=== PATIENT | female | born 1955 | race African-American/Black ===

== ENCOUNTER 2017-03-24 10:51 | Day surgery (SDC) | payer OTHER ==
--- NOTE | 2017-03-21 11:37 | HP ---
Admitting History and Physical - Primary Care Physician PCP: Zackary Dean - Admission Chief Complaint: left breast cancer History of Present Illness: 61 yo female noted to have suspicious calcifications on mammo 10/2016, underwent a left 10 o'clock stereo core bx on 12/09/2016 which was c/w DCIS. An MRI done was c/w known cancer without evidence of multifocal or contralateral dz. Patient is now presenting for left breast wide excision with NL. History Source: Patient Limitations to Obtaining History: No Limitations Home Medications - Allergies Allergies/Adverse Reactions: Allergies Allergy/AdvReac Type Severity Reaction Status Date / Time No Known Allergies Allergy Verified 03/21/17 11:37 Family Disease History - Family Disease History Family History: Unremarkable Review of Systems - Review of Systems Constitutional: reports: No Symptoms Cardiovascular: reports: No Symptoms Respiratory: reports: No Symptoms Physical Examination Constitutional: Yes: Well Nourished Cardiovascular: Yes: WNL Respiratory: Yes: WNL Breast(s): Yes: Other (Pendulous double d-cup breasts without skin changes or nipple discharge noted. No suspicious masses or adenopathy noted bilaterally.) Problem List - Problems (1) Ductal carcinoma in situ (DCIS) of left breast Code(s): D05.12 - INTRADUCTAL CARCINOMA IN SITU OF LEFT BREAST Assessment/Plan Plan: Left breast WE with NL
[2017-03-21 16:28] VITALS: BMI 27.3
[2017-03-24] MEDS ORDERED: MIDAZOLAM HCL 2 MG/2 ML SINGLE DOSE VIAL ONE (15:53)
[2017-03-24] MEDS ORDERED: PROPOFOL 20 ML ONE ×3 (15:53)
[2017-03-24] MEDS ORDERED: ONDANSETRON 4 MG/2 ML VIAL IVPB PRN (15:53)
[2017-03-24] MEDS ORDERED: KETOROLAC TROMETHAMINE 30 MG/1 ML VIAL IVPUSH PRN (15:53)
[2017-03-24] MEDS ORDERED: DEXTROSE 5%-0.45% SALINE 1,000 ML IV SCH (16:00)
[2017-03-24] MEDS ORDERED: DEXAMETHASONE SOD PHOSPHATE 4 MG/1 ML VIAL ONE (16:06)
[2017-03-24] MEDS ORDERED: ceFAZolin SODIUM 1 GM VIAL ONE (16:06)
[2017-03-24] MEDS ORDERED: BUPIVACAINE HCL/PF 2.5 MG/ML - 30 ML VIAL IJ ONE (16:45)
[2017-03-24] MEDS ORDERED: PROMETHAZINE HCL 25 MG/1 ML VIAL IVPUSH PRN (16:58)
[2017-03-24] MEDS ORDERED: ONDANSETRON 4 MG/2 ML VIAL IVPUSH PRN (16:58)
[2017-03-24] MEDS ORDERED: oxyCODONE HCL 5 MG TABLET PO PRN (16:58)
[2017-03-24] MEDS ORDERED: ACETAMINOPHEN 325 MG TABLET (FP) PO PRN (16:58)
[2017-03-24 18:00] VITALS: BP 128/71; PULSE 75; TEMP 98.4
--- NOTE | 2017-03-25 07:48 | OP ---
DATE OF OPERATION: 03/24/2017 PREOPERATIVE DIAGNOSIS: Left breast ductal carcinoma in situ, upper inner quadrant. POSTOPERATIVE DIAGNOSIS: Left breast ductal carcinoma in situ, upper inner quadrant. PROCEDURE: Left breast partial mastectomy with mammographic needle localization. ANESTHESIA: Local with IV sedation. SURGEON: David Dean MD MANAGER INPATIENT: DEREK Sharif COMPLICATIONS: None. Briefly, the patient is a 61-year-old postmenopausal female with [place] descent. She was found to have some calcifications in the upper inner aspect of the left breast on mammography in September 2016 and underwent a stereotactic biopsy in December 2016 showing intermediate grade DCIS which was ER/NE positive. MRI performed January 2017 showed no suspicious extensive or contralateral findings. She was advised to undergo a left breast partial mastectomy, decided to delay until March. Patient was brought in for the procedure on March 24, 2017. She first underwent the mammographic needle localization of the clip in question in the upper inner aspect of the left breast. She was brought to the holding area and in the holding area a site verification was made and informed consent was obtained. She was brought into the operating room and laid on the OR table in the supine position. Venodynes were placed on the lower extremities. She received 1 g of Ancef prior to incision. She underwent IV sedation. The left breast was sterilely prepped and draped in the usual fashion with the wire prepped into the field. Lidocaine 1% was given directly around the needle localization site in the upper inner aspect of the left breast. A curvilinear incision was made and dissection was undertaken around the needle localization with the breast tissue completely removed from around the wire. The specimen was removed all the way down to the pectoralis major muscle. The specimen was oriented with a long lateral, short superior suture. Specimen radiograph showed removal of the clip in question. Hemostasis was achieved. At this point, a 3 x 4 tissue transfer closure was accomplished by undermining the breast tissue and swinging the breast tissue into the wound to close the defect. The breast tissue was reapproximated using 2-0 plain suture. The skin was closed using interrupted 3-0 deep dermal Vicryl suture and a running 4-0 subcuticular Biosyn suture. Mastisol, Steri-Strips were applied over the wound with a compressive dressing placed over this. She was placed in a surgical bra postoperatively and will be discharged home the same day once discharge criteria are met. She is to follow up in the office in 1 week for formal wound pathology check. Estimated blood loss was about 10 mL and all sponge and needle counts were correct at the end of the case. DAVID DEAN M.D. [id number]
--- NOTE | 2017-03-29 16:27 | PATH ---
Surgical Pathology Report Patient Name: NICO TONY [facility]. Rec. #: [id number] /Age/Gender: 1955 (Age: 61) / F Account: [id number] [facility] Taken: 03/24/2017 Received: 03/24/2017 Reported: 03/29/2017 Physicians: Zackary Dean M.D. Specimen(s) Received A: LEFT BREAST WIDE EXCISION B: LEFT BREAST SUPERIOR MARGIN C: LEFT BREAST LATERAL MARGIN D: LEFT BREAST INFERIOR MARGIN E: LEFT BREAST MEDIAL MARGIN F: LEFT BREAST DEEP MARGIN G: LEFT BREAST ANTERIOR MARGIN Clinical History Wide excision: DCIS Final Diagnosis A. BREAST, LEFT, WIDE EXCISION: DUCTAL CARCINOMA IN SITU (DCIS), SOLID TYPE, INTERMEDIATE NUCLEAR GRADE WITH MODERATE NECROSIS AND ASSOCIATED CALCIFICATIONS. DCIS IS PRESENT IN THREE OF TEN SLIDES (3/10), WITH THE LARGEST CONTIGUOUS FOCUS OF DCIS SPANNING 7 MM IN GREATEST DIMENSION, MICROSCOPICALLY. DCIS IS FOCALLY CLOSE TO (< 1 MM) THE DEEP AND MEDIAL MARGINS. SEE SPECIMENS B-G FOR FINAL MARGINS. PRIOR BIOPSY SITE CHANGES ARE PRESENT. PATHOLOGIC STAGE (pTNM): pTis (DCIS) pNx. B. BREAST, LEFT, SUPERIOR MARGIN, EXCISION: BENIGN BREAST TISSUE. C. BREAST, LEFT, LATERAL MARGIN, EXCISION: BENIGN BREAST TISSUE. D. BREAST, LEFT, INFERIOR MARGIN, EXCISION: BENIGN BREAST TISSUE. E. BREAST, LEFT, MEDIAL MARGIN, EXCISION: DUCTAL CARCINOMA IN SITU (DCIS), INTERMEDIATE GRADE, PRESENT IN TWO OF THREE SLIDES (2/3), WITH THE LARGEST CONTIGUOUS FOCUS OF DCIS SPANNING 6 MM IN GREATEST DIMENSION, MICROSCOPICALLY. DCIS IS FOCALLY AT 1 MM FROM THE NEW MARGIN. F. BREAST, LEFT, DEEP MARGIN, EXCISION: BENIGN BREAST TISSUE. G. BREAST, LEFT, ANTERIOR MARGIN, EXCISION: BENIGN BREAST TISSUE. Comments DCIS of Breast: Surgical Pathology Cancer Case Summary Based on AJCC/UICC TNM, 7th edition Procedure _X_ Excision with image-guided localization Specimen Laterality _X_ Left Estimated size (extent) of DCIS (greatest dimension using gross and microscopic evaluation): at least 7 mm and: Number of blocks with DCIS: 5 Number of blocks examined: 26 (based on specimens A-G) Nuclear Grade _X_ Grade II (intermediate) Necrosis _X_ Present, focal / moderate Microcalcifications _X_ Present in both DCIS and non-neoplastic tissue Margins _X_ Margin(s) uninvolved by DCIS Distance from closest margin: 1 mm from final medial margin E. DCIS is < 1 mm from deep margin in wide excision A: final deep margin F is negative for DCIS. Pathologic Staging (pTNM) Primary Tumor (pT) _X_ pTis (DCIS): Ductal carcinoma in situ Biomarker Studies Results of ER and NV studies performed on block E2 at [facility] are as follows: ER (clone [id number] mouse monoclonal antibody by [employer]): 100 % nuclear staining with strong intensity (Positive). NV (clone16 mouse monoclonal antibody by [employer]): 100 % nuclear staining with strong intensity (Positive). Positive and negative controls (internal if applicable) show appropriate results. Formalin fixation and cold ischemic times are within current ASCO/CAP recommendations for ER, NV and Her2 testing. Electronically Signed Olesya Dawkins M.D. Gross Description A. Received in formalin, labeled "left breast wide excision," is a 4.8 x 4.0 x 2.8 cm. corado-yellow, irregular, portion of fibroadipose tissue with a needle localization wire present. There is a short suture marking the superior aspect and a long suture marking the lateral aspect, per the surgeon. There is no skin present. The specimen is inked as follows: superior and lateral blue; inferior green; medial yellow; anterior red; deep black. The specimen is serially sectioned from superior to inferior. Sectioning reveals a 1.8 x 0.8 x 0.6 cm focus of firm fibrous tissue abutting the deep margin. The remaining breast parenchyma displays foci of thin white fibrous tissue. No definitive mass is identified. Release Specialist sections are submitted in 10 cassettes as follows: 1-3-focus of fibrous tissue with deep margin; 4-5-lateral margin; 6-7-medial margin; 8-anterior margin; 9-superior margin; 10-inferior margin. Time to formalin fixation: 2 minutes Total formalin fixation time: Approximately 26 hours. B. Received in formalin labeled "left breast superior margin," is a 2.1 x 1.8 x 0.6 cm irregular portion of fibroadipose tissue with a suture marking the biopsy cavity side, per the surgeon. The new margin is inked blue and the specimen is serially sectioned. The specimen is entirely submitted in 3 cassettes. C. Received in formalin labeled "left breast lateral margin," is a 2.0 x 1.6 x 0.9 cm irregular portion of fibroadipose tissue with a suture marking the biopsy cavity side, per the surgeon. The new margin is inked blue and the specimen is serially sectioned. The specimen is entirely submitted in 2 cassettes. D. Received in formalin labeled "left breast inferior margin," is a 2.5 x 2.0 x 0.6 cm irregular portion of fibroadipose tissue with a suture marking the biopsy cavity side, per the surgeon. The new margin is inked blue and the specimen is serially sectioned. The specimen is entirely submitted in 3 cassettes. E. Received in formalin labeled "left breast medial margin," is a 2.3 x 1.7 x 0.7 cm irregular portion of fibroadipose tissue with a suture marking the biopsy cavity side, per the surgeon. The new margin is inked blue and the specimen is serially sectioned. The specimen is entirely submitted in 3 cassettes. F. Received in formalin labeled "left breast deep margin," is a 1.8 x 1.7 x 0.6 cm irregular portion of fibroadipose tissue with a suture marking the biopsy cavity side, per the surgeon. The new margin is inked in blue and the specimen is serially sectioned. The specimen is entirely submitted in 2 cassettes. G. Received in formalin labeled "left breast anterior margin," is a 2.4 x 1.6 x 0.6 cm irregular portion of fibroadipose tissue with a suture marking the biopsy cavity side, per the surgeon. The new margin is inked blue and the specimen is serially sectioned. The specimen is entirely submitted in 3 cassettes. 03/25/2017 [facility]03/25/2017
== END 2017-03-24 17:55 | disposition home or self-care (01) ==
LOC: FASU 10:51
PROVIDERS: ATTEND Surgery Surgical Oncology
PROC: 0HBU0ZZ Excision of Left Breast, Open Approach (ICD-10-PCS; principal; 2017-03-24 16:10)
DX: D05.12 Intraductal carcinoma in situ of left breast (principal)
CPT/HCPCS: 19281; 88307-TC; 88342-TC